=== PATIENT | female | born 1970 | race Caucasian/White ===

== ENCOUNTER → 2016-10-14 | Outpatient (REF) | payer BC | LOC: M SFHCWAGY 11:12 | PROVIDERS: ATTEND Nurse Practitioner Women's Health | DX: Z12.4 Encounter for screening for malignant neoplasm of cervix (principal) ==

== ENCOUNTER → 2016-10-14 | Outpatient (CLI) | payer BC ==
--- NOTE | 2016-10-14 12:33 | REPMRS ---
Patient History The patient states she had a clinical breast exam in 09/30 No known family history of cancer. Taking hormonal contraceptives for 23 years. Digital Woman Screen Mammo: October 14, 2016 - Exam #: [id number] Bilateral CC and MLO view(s) were taken. Technologist: Chantale Gamez, Technologist Prior study comparison: August 12, 2015, digital woman screen mammo performed at [facility]. July 08, 2014, digital woman screen mammo performed at [facility]. May 30, 2013, digital woman screen mammo performed at [facility]. FINDINGS: There are scattered fibroglandular densities. There has been no change in the appearance of the mammogram from the prior studies. There is a moderate amount of residual fibroglandular tissue which is fairly symmetric. There is no interval development of dominant mass, architectural distortion, or clustered microcalcification suggestive of malignancy. There are scattered, small, benign calcifications of doubtful clinical significance. No significant changes when compared with prior studies. ASSESSMENT: BI-RADS/ACR category 2 mammogram. Benign finding(s). Recommendation Routine screening mammogram in 1 year (for women over age 40). This mammogram was interpreted with the aid of an FDA-approved computer-aided dectection system. A. Negative x-ray reports should not delay biopsy if a dominant or clinically suspicious mass is present. B. Four to eight percent of cancers are not identified by mammography. C. Adenosis and dense breast may obscure an underlying neoplasm. Electronically Signed By: Joselito Hammer MD 10/14/16 [id number]
== END ==
LOC: M WHC 11:04
PROVIDERS: ATTEND Nurse Practitioner Women's Health
DX: Z12.31 Encounter for screening mammogram for malignant neoplasm of breast (principal); Z92.0 Personal history of contraception; R92.1 Mammographic calcification found on diagnostic imaging of breast

== ENCOUNTER → 2017-05-25 | Outpatient (REF) | payer BC | LOC: M LAB REF 13:34 | PROVIDERS: ATTEND Nurse Practitioner Adult Health | DX: D56.8 Other thalassemias (principal) ==

== ENCOUNTER → 2018-03-21 | Outpatient (CLI) | payer BC | LOC: M WHC 10:49 | DX: Z12.31 Encounter for screening mammogram for malignant neoplasm of breast (principal) | CPT/HCPCS: 77067 ==

== ENCOUNTER → 2019-03-26 | Outpatient (CLI) | payer BC ==
--- NOTE | 2019-03-26 14:06 | REPMRS ---
Patient History The patient states she had a clinical breast exam in 03/2019. No known family history of cancer. Taking hormonal contraceptives for 25 years. 3D TOMOSYNTHESIS WAS PERFORMED. The [facility] lifetime risk for breast cancer is 12.4%. Digital Woman Screen Mammo: March 26, 2019 - Exam #: [id number] Bilateral CC and MLO view(s) were taken. Technologist: Sharmin Xiao, Technologist Prior study comparison: March 21, 2018, bilateral digital woman screen mammo performed at [facility]. October 14, 2016, digital woman screen mammo performed at [facility]. FINDINGS: There are scattered fibroglandular densities. There has been no change in the appearance of the mammogram from the prior studies. There is a mild amount of residual fibroglandular tissue which is fairly symmetric. There is no interval development of dominant mass, architectural distortion, or clustered microcalcification suggestive of malignancy. Assessment: BI-RADS/ACR category 1 mammogram. Negative Mammogram. Recommendation Routine screening mammogram in 1 year (for women over age 40). This mammogram was interpreted with the aid of an FDA-approved computer-aided dectection system. Electronically Signed By: Keyur Bentley MD 03/26/19 [id number]
== END ==
LOC: M WHC 11:19
PROVIDERS: ATTEND Nurse Practitioner Women's Health
DX: Z12.31 Encounter for screening mammogram for malignant neoplasm of breast (principal)

== ENCOUNTER → 2020-04-09 | Outpatient (REF) | payer BC | LOC: M SFHCWAGY 17:49 | PROVIDERS: ATTEND Nurse Practitioner Women's Health | DX: Z12.4 Encounter for screening for malignant neoplasm of cervix (principal) | CPT/HCPCS: 87624; G0123 ==

== ENCOUNTER → 2020-04-09 | Outpatient (CLI) | payer BC ==
--- NOTE | 2020-04-09 15:12 | REPMRS ---
Patient History The patient states she had a clinical breast exam in March 2020. No known family history of cancer. Taking hormonal contraceptives for 25 years. 3D TOMOSYNTHESIS WAS PERFORMED. [facility] lifetime [facility] for [facility] cancer is 12.2%. Volpara density b. Digital Woman Screen Mammo: April 09, 2020 - Exam #: [id number] Bilateral CC and MLO view(s) were taken. Technologist: Ysabel Landin, Technologist Prior study comparison: March 26, 2019, bilateral digital woman screen mammo performed at [facility]. March 21, 2018, bilateral digital woman screen mammo performed at [facility]. FINDINGS: There are scattered fibroglandular densities. There has been no change in the appearance of the mammogram from the prior studies. There is a mild amount of residual fibroglandular tissue which is fairly symmetric. There is no interval development of dominant mass, architectural distortion, or clustered microcalcification suggestive of malignancy. Assessment: BI-RADS/ACR category 1 mammogram. Negative Mammogram. Recommendation Routine screening mammogram in 1 year (for women over age 40). This mammogram was interpreted with the aid of an FDA-approved computer-aided dectection system. Electronically Signed By: Keyur Bentley MD 04/09/20 [id number]
== END ==
LOC: M WHC 13:55
PROVIDERS: ATTEND Nurse Practitioner Women's Health
DX: Z12.31 Encounter for screening mammogram for malignant neoplasm of breast (principal); Z92.0 Personal history of contraception

== ENCOUNTER → 2020-04-21 | Outpatient (REF) | payer BC ==
[2020-04-23 16:49] LABS: PERCENT SATURATION 19.4 % (13.2-45.0)
[2020-04-23 17:07] LABS: FOLATE 11.4 NG/ML
== END ==
LOC: M LAB REF 16:13
PROVIDERS: ATTEND Nurse Practitioner Adult Health
DX: D64.9 Anemia, unspecified (principal)

== ENCOUNTER → 2021-05-26 | Outpatient (CLI) | payer BC ==
--- NOTE | 2021-05-26 13:28 | REPMRS ---
Patient History The patient states she had a clinical breast exam in May 2021. No known family history of cancer. Taking hormonal contraceptives for 26 years. Tomosynthesis is performed. Volpara breast density is b. [facility] lifetime risk of breast cancer 12.0%. Patient states no breast complaints today. Patient has signed MRS History Sheet. Digital Woman Screen Mammo: May 26, 2021 - Exam #: [id number] Bilateral CC and MLO view(s) were taken. Technologist: Chantale Gamez, Technologist Prior study comparison: April 09, 2020, bilateral digital woman screen mammo performed at [facility]. March 26, 2019, bilateral digital woman screen mammo performed at [facility]. FINDINGS: There are scattered fibroglandular densities. There has been no change in the appearance of the mammogram from the prior studies. There is a mild amount of residual fibroglandular tissue which is fairly symmetric. There is no interval development of dominant mass, architectural distortion, or clustered microcalcification suggestive of malignancy. Assessment: BI-RADS/ACR category 1 mammogram. Negative Mammogram. Recommendation Routine screening mammogram in 1 year (for women over age 40). This mammogram was interpreted with the aid of an FDA-approved computer-aided dectection system. Electronically Signed By: Keyur Bentley MD 05/26/21 [id number]
== END ==
LOC: M WHC 11:40
PROVIDERS: ATTEND Nurse Practitioner Women's Health
DX: Z12.31 Encounter for screening mammogram for malignant neoplasm of breast (principal)

== ENCOUNTER → 2021-06-25 | Outpatient (REF) | payer BC | LOC: M LAB REF 08:38 | PROVIDERS: ATTEND Surgery | DX: L72.3 Sebaceous cyst (principal) ==

== ENCOUNTER → 2022-06-02 | Outpatient (CLI) | payer BC | LOC: M WHC 14:31 | PROVIDERS: ATTEND Advanced Practice Midwife | DX: Z12.31 Encounter for screening mammogram for malignant neoplasm of breast (principal) ==

== ENCOUNTER → 2022-06-07 | Outpatient (REF) | payer BC ==
[2022-06-07 18:51] LABS: FERRITIN 43.8 NG/ML (7.3-270.7)
== END ==
LOC: M LAB REF 16:36
PROVIDERS: ATTEND Nurse Practitioner Adult Health
DX: R71.8 Other abnormality of red blood cells (principal)

== ENCOUNTER → 2023-06-20 | Outpatient (CLI) | payer BC ==
[2023-06-20 14:37] LABS: HEMATOCRIT 39.2 % (36.0-47.0); HEMOGLOBIN 12.8 g/dl (12.0-15.5); MEAN CORPUSCULAR HEMOGLOBIN 26.7 pg (27.0-33.0); MEAN CORPUSCULAR HGB CONC 32.7 g/dl (32.0-36.5); MEAN CORPUSCULAR VOLUME 81.8 fl (80.0-96.0); PLATELET COUNT, AUTOMATED 284 10^3/uL (150-450); RED BLOOD COUNT 4.79 10^6/uL (4.00-5.40); WHITE BLOOD COUNT 5.6 10^3/uL (4.0-10.0)
[2023-06-20 14:48] LABS: THYROID STIMULATING HORMONE 1.397 uIU/ML (0.55-4.78)
[2023-06-20 14:49] LABS: FREE T4 0.88 NG/DL (0.89-1.76)
== END ==
LOC: M PLALAB 10:43
PROVIDERS: ATTEND Advanced Practice Midwife
DX: Z12.4 Encounter for screening for malignant neoplasm of cervix (principal)

== ENCOUNTER → 2023-06-20 | Outpatient (REF) | payer BC | LOC: M PLALAB 10:22 | PROVIDERS: ATTEND Advanced Practice Midwife | DX: Z12.4 Encounter for screening for malignant neoplasm of cervix (principal); Z53.9 Procedure and treatment not carried out, unspecified reason ==

== ENCOUNTER → 2023-06-20 | Outpatient (REF) | payer BC ==
[2023-06-20 17:11] LABS: HEMATOCRIT 40.3 % (36.0-47.0)
[2023-06-20 17:40] LABS: FERRITIN 22.7 NG/ML (7.3-270.7)
== END ==
LOC: M LAB REF 16:37
PROVIDERS: ATTEND Nurse Practitioner Adult Health
DX: D64.9 Anemia, unspecified (principal)

== ENCOUNTER → 2023-06-20 | Outpatient (CLI) | payer BC | LOC: M WHC 09:23 | PROVIDERS: ATTEND Advanced Practice Midwife | DX: Z12.31 Encounter for screening mammogram for malignant neoplasm of breast (principal) ==